=== PATIENT | male | born 1990 | race Two or more races ===

== ENCOUNTER 2022-11-04 18:41 | Emergency (ER) | payer BC, SELFPAY ==
[2022-11-04 18:50] VITALS: BP 158/95; PULSE 75; RESP 16; TEMP 36.6; O2SAT 98
--- NOTE | 2022-11-04 19:09 | ED.GENADULT ---
HPI - General Adult General Chief complaint: Urogenital-Male Stated complaint: std test Source: patient and RN notes reviewed History of Present Illness HPI narrative: 31-year-old male presents to urgent care with reports a possible exposure to gonorrhea. Patient states he had unprotected sex during a 1 night stand approximately 1 month ago. Patient states he was called by this woman recently informing him that she tested positive for gonorrhea. Patient denies any penile discharge, dysuria, abdominal pain, rash, lesions, or blisters. Denies any fevers or chills. Some parts of this dictation were generated by voice recognition software and may contain typographical and/or grammatical inaccuracies. Related Data Home Medications Medication Instructions Recorded Confirmed No Home Medications 11/04/22 11/04/22 Allergies Allergy/AdvReac Type Severity Reaction Status Date / Time No Known Allergies Allergy Unverified 11/04/22 18:52 Review of Systems Review of Systems: Pertinent positives and pertinent negatives per HPI. PMFSH Comments At the time of my signature, I reviewed and agree with the nursing past medical, surgical, social, and family history. There is no relevant family history pertinent to the patient complaint. Exam Narrative: GENERAL: This is a well-nourished, well-developed patient, in no apparent distress. HEAD: normocephalic, atraumatic. EYES: Sclera clear/white. Vision is grossly intact. EARS: External ears normal, auditory canals clear and without drainage. Hearing grossly intact. NOSE: External nose normal with no obvious nasal discharge, nares without redness, no rhinorrhea. THROAT: Mucous membranes moist, posterior pharynx clear. NECK: Neck supple, non-tender without lymphadenopathy, masses or thyromegaly. CARDIOVASCULAR: Regular rate RESPIRATORY: no respiratory distress SKIN: warm, intact with no suspicious lesions or rash, good texture and turgor. NEURO: awake, alert, and oriented to person, place and time. There were no obvious focal neurologic abnormalities. Course Course Level of Care: Express Care Visit Vital Signs Vital signs: Vital Signs Temperature 97.8 F 11/04/22 18:50 Pulse Rate 75 11/04/22 18:50 Respiratory Rate 16 11/04/22 18:50 Blood Pressure 158/95 H 11/04/22 18:50 Pulse Oximetry 98 11/04/22 18:50 Temperature 97.8 F 11/04/22 18:50 Pulse Rate 75 04/03/23 18:50 Respiratory Rate 16 11/04/22 18:50 Blood Pressure 158/95 H 11/04/22 18:50 Pulse Oximetry 98 11/04/22 18:50 reviewed Medical Decision Making MDM Narrative Medical decision making narrative: Refrain from sexual activity for 1 week. He will be called with any positive results. Differential Diagnosis Differential Diagnosis: STI, possible exposure to STI, UTI Vital Signs Vital Signs: Vital Signs Temperature 97.8 F 11/04/22 18:50 Pulse Rate 75 11/04/22 18:50 Respiratory Rate 16 11/04/22 18:50 Blood Pressure 158/95 H 11/04/22 18:50 Pulse Oximetry 98 11/04/22 18:50 Temperature 97.8 F 11/04/22 18:50 Pulse Rate 75 11/04/22 18:50 Respiratory Rate 16 11/04/22 18:50 Blood Pressure 158/95 H 11/04/22 18:50 Pulse Oximetry 98 11/04/22 18:50 Lab Data Lab results reviewed: Yes I reviewed the patient's lab results. Labs: Lab Results 11/04/22 11/04/22 Range/Units 18:58 18:58 C.trachomatis RNA (TMA) Pending N.gonorrhoeae RNA (TMA) Pending T. vaginalis Amp RNA Pending Urine Glucose Negative Reference Range: Negative Urine Bilirubin Negative Reference Range: Negative Urine Ketone Negative Reference Range: Negative Urine Specific [place] 1.025 Reference Range:1.001-1
[2022-11-04] MEDS: AZITHROMYCIN 250 MG TABLET 1000 MG PO (19:17)
[2022-11-04] MEDS: cefTRIAXone 500 MG, LIDOCAINE HCL 1% LOCAL INJ 1 ML IM (19:18)
== END 2022-11-04 19:37 | disposition home or self-care (01) ==
PROVIDERS: Emergency Provider Nurse Practitioner Family
DX: Z11.3 Encounter for screening for infections with a predominantly sexual mode of transmission (principal)
CPT/HCPCS: 81003; 87491; 87591; 87661; 96372; 99213; A9270; G0463; J0696